=== PATIENT | female | born 1950 | race Caucasian/White ===

== ENCOUNTER → 2022-02-27 10:50 | Outpatient (BNVA) | payer MEDICARE, OTHER, SELFPAY | PROVIDERS: Family Provider Nurse Practitioner; PCP Nurse Practitioner; Visit Provider Emergency Medicine | DX: M79.641 Pain in right hand (principal); M79.89 Other specified soft tissue disorders | CPT/HCPCS: 73130 ==

== ENCOUNTER 2024-05-28 11:07 | Emergency (ER) | payer MEDICARE, OTHER, SELFPAY ==
--- NOTE | 2024-05-28 11:07 | ECG_ITS ---
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 Measurements Intervals [place] Rate: 67 P: 63 [place]: 130 QRS: 32 QRSD: 82 T: 39 QT: 370 QTc: 391 Interpretive Statements SINUS RHYTHM LOW QRS VOLTAGE IN PRECORDIAL LEADS [QRS DEFLECTION < 1.0 mV IN CHEST LEADS] Compared to ECG 04/22/2018 20:16:25 Ventricular premature complex(es) no longer present Electronically Signed On 05-28-2024 16:05:59 CDT by Humble Young M.D. [id number] f
[2024-05-28 11:10] VITALS: BP 143/87; PULSE 73; TEMP 36.7; O2SAT 98; BMI 30.3
--- NOTE | 2024-05-28 11:11 | ECG_ITS ---
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 Measurements Intervals [place] Rate: 67 P: 63 [place]: 130 QRS: 32 QRSD: 82 T: 39 QT: 370 QTc: 391 Interpretive Statements SINUS RHYTHM LOW QRS VOLTAGE IN PRECORDIAL LEADS [QRS DEFLECTION < 1.0 mV IN CHEST LEADS] Compared to ECG 04/22/2018 20:16:25 Ventricular premature complex(es) no longer present Electronically Signed On 05-28-2024 13:20:37 CDT by Humble Young M.D. [id number]
--- NOTE | 2024-05-28 11:11 | XRR_ITS ---
PROCEDURE INFORMATION: Exam: XR Chest Exam date and time: 05/28/2024 11:57 AM Age: 74 years old Clinical indication: Chest pressure; Patient HX: Chest pain radiating posteriorly; No previous cardiac HX TECHNIQUE: Imaging protocol: Radiologic exam of the chest. Views: 1 view. COMPARISON: CR XR chest 1V [id number] 04/22/2018 4:59 PM FINDINGS: Lungs: Unremarkable. No consolidation. Pleural spaces: Unremarkable. No pleural effusion. No pneumothorax. Heart/Mediastinum: Unremarkable. No cardiomegaly. Bones/joints: Unremarkable. XR/XR chest 1V portable [id number] IMPRESSION: No acute findings.
[2024-05-28 11:32] LABS: Basophils # 0.1 10^3/uL (0.0-0.1); Basophils % 0.9 %; Eosinophils # 0.2 10^3/uL (0.0-0.8); Eosinophils % 3.4 %; Hematocrit 41.9 % (36-47); Lymphocytes # 1.5 10^3/uL (0.8-4.8); Lymphocytes % 27.5 %; Mean Corpuscular Hemoglobin 28.2 pg (27-33); Mean Platelet Volume 9.8 fL (7.4-10.4); Monocytes # 0.4 10^3/uL (0.2-0.9); Monocytes % 6.6 %; Neutrophils # 3.44 10^3/uL (1.8-7.7); Neutrophils % 61.2 %; Nucleated Red Blood Cells % 0 %; Platelet Count 326 10^3/cmm (157-399); Red Blood Count 4.76 10^6/uL (3.85-5.65); Red Cell Distribution Width 12.5 % (12.1-15.1); White Blood Count 5.61 10^3/uL (3.29-11.43)
[2024-05-28 11:55] LABS: Alanine Aminotransferase 22 U/L (0-33); Albumin Level 4.1 g/dL (3.5-5.2); Alkaline Phosphatase 97 U/L (35-105); Anion Gap 15.8 (5-19); Aspartate Amino Transferase 15 U/L (0-32); Blood Urea Nitrogen 11 mg/dL (8-23); Calcium 9.2 mg/dL (8.5-10.5); Carbon Dioxide 26 mmol/L (22-29); Chloride 105 mmol/L (98-107); Creatinine Clr Calc Pharmacy 64.0582; Glucose 146 mg/dL (65-115); Lipase 27 U/L (13-60); Osmolality Calculated 298 mOsm/kg (285-295); Potassium 3.8 mmol/L (3.5-5.1); Sodium 143 mmol/L (136-145); Total Bilirubin 0.3 mg/dL (0.15-1.2); Total Protein 7.1 g/dL (6.6-8.7)
[2024-05-28 11:56] LABS: Troponin(5th) Baseline < 6 ng/L (0-10)
--- NOTE | 2024-05-28 13:30 | ED_ITS ---
HPI - Chest Pain 2 General: Chief Complaint: Chest Pain Stated Complaint: Cp, upper back pain Time Seen by Provider: 05/28/24 13:26 Source: patient Mode of arrival: ambulatory Limitations: no limitations History of Present Illness: 74-year-old female who states that she h as sudden onset of epigastric abdominal pain along with chest pain roughly 3 and half hours ago she states it was sudden very sharp and lasted a few minutes since it is resolved she denies any pain currently she denies any vomiting fever or shortness of breath. Associated symptoms: Deny abdominal pain, dyspnea, fever(s), nausea or vomiting Review of Systems 2 Const: Denies: fever(s), chills, body aches or change in appetite ENMT: Denies: throat pain or dental pain Card: Reports: chest pain Resp: Denies: dyspnea GI: Denies: abdominal pain, nausea, vomiting or diarrhea Musc: Denies: neck pain or back pain Skin/Breast: Denies: rash Neuro: Denies: headache(s) PFSH ED 2 PFSH: Social History Smoking and tobacco/nicotine status: unknown if used tobacco/nicotine Physical Exam 2 Const: COMMON NORMALS: no acute distress, patient oriented x3 and healthy appearing HENMT: COMMON NORMALS: normocephalic and atraumatic HEAD & SCALP: n ormocephalic and atraumatic Eye: COMMON NORMALS: conjunctivae normal CONJUNCTIVA: Yes conjunctivae normal Neck/C-Spine: COMMON NORMALS: full ROM and supple Chest: COMMONS NORMALS: normal inspection of the chest and normal palpation of entire chest wall Resp: COMMON NORMALS: normal respiratory effort, No retractions, No use of accessory muscles and clear to auscultation bilaterally AUSCULTATION: clear to auscultation bilaterally Cardio: COMMON NORMALS: regular rate, regular rhythm and No murmurs present (Cardio) RATE: regular rate RHYTHM: regular rhythm GI: COMMON NORMALS: Normal to inspection, nondistended, normoactive bowel sounds present, Soft to palpation, non-tender and no masses PALPATION: Yes Soft to palpation Extremity: COMMON NORMALS: normal to inspection and full ROM Neuro: COMMON NORMALS: patient oriented x3, moves all extremities and no focal motor deficits Psych: COMMON NORMALS: mental status grossly normal, Normal thought process present and cooperative THOUGHT PROCESS: Normal thought process present Skin: COMMON NORMALS: no rashes or lesions noted and no wounds GENERAL SKIN EXAM: no rashes or lesions noted Course 2 Vital Signs: Vital signs: Vital Signs Temperature 98.0 F 05/28/24 11:10 Pulse Rate 68 05/28/24 14:00 Respiratory Rate 15 05/28/24 14:00 Blood Pressure 132/77 05/28/24 14:00 Pulse Oximetry 99 05/28/24 14:00 Oxygen Delivery Me thod Room Air 05/28/24 14:00 MDM - Chest Pain Medical Decision Making Patient presents here chest pain along with abdominal pain is atypical in nature it was sudden she is currently pain-free she has no signs of dissection pulmonary embolism or acute coronary syndrome troponins blood work EKG x-ray are all normal she stable for discharge follow-up with PCP return if worsening. Medical Records I reviewed the patient's medical records. Lab Data I reviewed the patient's lab results. 05/28/24 11:22 05/28/24 11:22 Radiology Impressions Chest X-Ray 05/28/24 11:11 IMPRESSION: No acute findings. Laboratory Results WBC 5.61 10^3/uL (3.29-11.43) 05/28/24 11:22 RBC 4.76 10^6/uL (3.85-5.65) 05/28/24 11:22 Hgb 13.40 g/dL (11.27-16.99) 05/28/24 11:22 Hct 41.9 % (36-47) 05/28/24 11:22 MCV 88.0 fl (85-98) 05/28/24 11:22 MCH 28.2 pg (27-33) 05/28/24 11:22 MCHC 32.0 g/dL (30-55) 05/28/24 11:22 RDW 12.5 % (12.1-15.1) 05/28/24 11:22 Plt Count 326 10^3/cmm (157-399) 05/28/24 11:22 MPV 9.8 fL (7.4-10.4) 05/28/24 11:22 Neut % (Auto) 61.2 % 05/28/24 11:22 Lymph % (Auto) 27.5 % 05/28/24 11:22 Burnett % (Auto) 6.6 % 05/28/24 11:22 Eos % (Auto) 3.4 % 05/28/24 11:22 Baso % (Auto) 0.9 % 05/28/24 11:22 Neut # (Auto) 3.44 10^3/uL (1.8-7.7) 05/28/24 11:22 Lymph # (Auto) 1.5 10^3/uL (0.8-4.8) 05/28/24 11:22 Burnett # (Auto) 0.4 10^3/uL (0.2-0.9) 05/28/24 11:22 Eos # (Auto) 0.2 10^3/uL (0.0-0.8) 05/28/24 11:22 Baso # (Auto) 0.1 10^3/uL (0.0-0.1) 05/28/24 11:22 Nucleated RBC % (auto) 0 % 05/28/24 11:22 Nucleated RBCs # 0.0 /100WBC 05/28/24 11:22 Sodium 143 mmol/L (136-145) 05/28/24 11:22 Potassium 3.8 mmol/L (3.5-5.1) 05/28/24 11:22 Chloride 105 mmol/L (98-107) 05/28/24 11:22 Carbon Dioxide 26 mmol/L (22-29) 05/28/24 11:22 Anion Gap 15.8 (5-19) 05/28/24 11:22 BUN 11 mg/dL (8-23) 05/28/24 11:22 Creatinine 0.6 mg/dL (0.5-0.9) 05/28/24 11:22 GFR Calculation Not Reportable 05/28/24 11:22 Glucose 146 mg/dL (65-115) H 05/28/24 11:22 Calculated Osmolality 298 mOsm/kg (285-295) H 05/28/24 11:22 Calcium 9.2 mg/dL (8.5-10.5) 05/28/24 11:22 Total Bilirubin 0.3 mg/dL (0.15-1.2) 05/28/24 11:22 AST 15 U/L (0-32) 05/28/24 11:22 ALT 22 U/L (0-33) 05/28/24 11:22 Alkaline Phosphatase 97 U/L (35-105) 05/28/24 11:22 Troponin T Baseline < 6 ng/L (0-10) 05/28/24 11:22 Troponin T 120 Minute 6.00 ng/L (0-10) 05/28/24 13:35 Delta Troponin T 0.97344 ABS# (0-10) 05/28/24 13:35 Total Protein 7.1 g/dL (6.6-8.7) 05/28/24 11:22 Albumin 4.1 g/dL (3.5-5.2) 05/28/24 11:22 Globulin 3.0 g/dL (1.3-4.6) 05/28/24 11:22 Lipase 27 U/L (13-60) 05/28/24 11:22 All radiology interpretation(s) finalized by discharge EKG Data EKG 1: EKG interpretation date: 05/28/24 EKG interpretation time: 13:29 Interpretation: nsr hr [address] or t wave abnormalities qrs 77 qtc 405 Discharge Plan Discharge Patient Disposition: Home Clinical Impression: Chest pain Condition: Stable Prescriptions: No Action ICaps AREDS 4,296 mcg-226 mg-90 mg capsule 1 cap PO BID cholecalciferol (vitamin D3) 25 mcg (1,000 unit) capsule 25 mcg PO DAILY Azo Cranberry 250 mg tablet,chewable 250 mg PO TID fluticasone propionate [Allergy Relief (fluticasone)] 50 mcg/actuation spray,suspension 1 spray intranasal DAILY Rx Instructions: administer into each nostril Fish Oil 100-160-1,000 mg capsule PO albuterol sulfate 90 mcg/actuation HFA aerosol inhaler 2 puff inhalation Q6H PRN (Reason: shortness of breath or wheezing) Qty: 8.5 0RF ypidvfayjxntbyi-inxzhxruf-CG [Bromfed DM] 2-30-10 mg/5 mL syrup 5 ml PO Q6H PRN (Reason: cold symptoms) Qty: 118 0RF prednisone 10 mg tablet 30 mg PO DAILY 5 Days Qty: 15 0RF metoprolol tartrate 25 mg tablet 25 mg PO DAILY omeprazole 10 mg capsule,delayed release(DR/EC) 10 mg PO DAILY Magnesium PO polymyxin B sulf-trimethoprim [Polytrim] 10,000 unit- 1 mg/mL drops 1 drp ophthalmic (eye) .four times daily 7 Days Qty: 10 0RF Rx Instructions: while awake; do not exceed 6 doses in 24 hours Discharge Orders: Discharge ED (Routine); Ordered 05/28/24 Ordered By: Chad Ramos Discharge Diet: Advance as tolerated Discharge Activity: Resume usual activity Patient Instructions: Chest Pain (ED) Coding Level of Care Code ED Rippler for Janet Khan
[2024-05-28] MEDS: sodium chloride 0.9% 1,000 ML 999 ML IV (13:41)
[2024-05-28 13:45] VITALS: BP 143/80; PULSE 74; RESP 17; O2SAT 99
[2024-05-28 13:59] LABS: Troponin 5 2HR Delta 0.00001 ABS# (0-10)
[2024-05-28 14:00] VITALS: BP 132/77; PULSE 68; RESP 15; O2SAT 99
[2024-05-28 14:48] VITALS: BP 139/76; PULSE 67; O2SAT 98
--- NOTE | 2024-05-28 17:11 | ECG_ITS ---
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 Measurements Intervals [place] Rate: 68 P: 63 [place]: 130 QRS: 42 QRSD: 77 T: 48 QT: 387 QTc: 414 Interpretive Statements SINUS RHYTHM LOW QRS VOLTAGE IN PRECORDIAL LEADS [QRS DEFLECTION < 1.0 mV IN CHEST LEADS] Compared to ECG 05/28/2024 11:07:37 No significant changes Electronically Signed On 05-28-2024 16:04:42 CDT by Humble Young M.D. [id number]
== END 2024-05-28 14:49 | disposition home or self-care (01) ==
PROVIDERS: Emergency Provider Emergency Medicine
DX: R07.9 Chest pain, unspecified (principal); Z79.899 Other long term (current) drug therapy
CPT/HCPCS: 36415; 71045; 80053; 83690; 84484; 85025; 93005; 99285; J7030